=== PATIENT | female | born 1975 | race Caucasian/White ===

== ENCOUNTER 2022-08-01 08:09 | Outpatient (REF) | payer OTHER, SELFPAY ==
--- NOTE | ~2022-08-01 | XR_ITS ---
EXAMINATION: XR SHOULDER, LEFT CLINICAL INFORMATION: Left shoulder pain COMPARISON: None TECHNIQUE: AP external rotation, Grashey, scapular Y, and axillary views of the left shoulder. FINDINGS: The bones and soft tissues are normal. No fracture. Glenohumeral and acromioclavicular alignment is anatomic with normal joint space. No abnormal soft tissue calcifications. XR/XR shoulder LT min 2V IMPRESSION: Normal left shoulder.
== END 2022-08-01 08:10 | disposition home or self-care (01) ==
LOC: HO.HOSX 08:09
PROVIDERS: Visit Provider Physician Assistant
DX: M75.82 Other shoulder lesions, left shoulder (principal)
CPT/HCPCS: 20610; 73030; J1040

== ENCOUNTER 2022-08-08 11:59 | Outpatient (REF) | payer OTHER, SELFPAY ==
--- NOTE | ~2022-08-08 | XR_ITS ---
EXAMINATION: XR HIP, LEFT CLINICAL INFORMATION: Hip pain COMPARISON: Outside [facility] 06/06/[address] abdomen and pelvis 09/01/2021, MR left femur 11/16/2021 ([facility]). TECHNIQUE: AP view pelvis is performed along with AP and frog-lateral projections left hip for a total of 3 views. FINDINGS: There is no acute or healing fracture, dislocation, or interval destructive process. The bony pelvis appears normal. The SI joints and pubis are unremarkable. Bowel gas is normal. There is a naval jewelry ring again seen. The right hip shows no joint narrowing or erosive change. The left hip joint shows no interval narrowing or erosive change or chondrocalcinosis. Again, there is a nonaggressive benign-appearing stable lytic lesion intertrochanteric area left hip measuring under [address] findings suggest possible intraosseous lipoma. Liposclerosing myxofibrous lesion less likely. XR/XR hip LT w [id number] IMPRESSION: 1. No fracture, dislocation, or arthropathy. 2. Stable benign-appearing lytic lesion intertrochanteric area left hip measuring under 3 cm.
== END 2022-08-08 12:00 | disposition home or self-care (01) ==
LOC: HO.HOSX 11:59
PROVIDERS: Visit Provider Physician Assistant
DX: M25.552 Pain in left hip (principal)
CPT/HCPCS: 73502